=== PATIENT | female | born 1975 | race Caucasian/White ===

== ENCOUNTER 2017-02-23 11:31 | Emergency (ER) | payer SELFPAY ==
[~2017-02-23] VITALS: Ht 157.5 cm; Wt 79.5 kg
[2017-02-23 11:33] VITALS: BP 153/112; PULSE 89; RESP 15; O2SAT 98
[2017-02-23] MEDS ORDERED: Pantoprazole 4 mg/mL 10 mL Inj IVPUSH ONE (11:45)
[2017-02-23] MEDS ORDERED: Ondansetron 2 mg/mL 2 mL Inj IVPUSH PRN (11:45)
[2017-02-23 12:30] LABS: BASOPHILS % (AUTO) 0.3 % (0-3); EOSINOPHILS % (AUTO) 0.3 % (0-5); MONOCYTES % (AUTO) 6.2 % (4-12); Mean Corpuscular Hemoglobin 29.7 pg (27.0-35.0); Mean Corpuscular Volume 85.9 fL (81-100); NEUTROPHILS % (AUTO) 76.5 % (40-74); Platelet Count 331 bil/L (150-400)
--- NOTE | 2017-02-23 12:38 | ED.REPORT ---
HPI-Abd Pain F 40 and Over Date of Service Feb 23, 2017 ED Provider: Andriy Hickman MD Pt is a 41 y.o. female with hx of partial hysterectomy who presents to the ED c/ o left flank pain described as stabbing and pressure and radiating to her left groin onset 2 days ago. She reports that the pain is exacerbated by movement. Associated dysuria, nausea, vomiting, and diarrhea. She denies hx of kidney stones or abdominal surgery. Pt reports she has been taking dicyclomine as her PCP "believes she has an inflammatory disease". Nursing Notes Stated Complaint: LEFT SIDE PAIN Chief Complaint: Female Abdominal Pain Nursing Notes Reviewed: Yes Allergies: Coded Allergies: Sulfa (Sulfonamide Antibiotics) (Verified Allergy, Intermediate, rash, ) bupropion HCl (Verified Allergy, Unknown, 02/23/17) sertraline (Verified Allergy, Unknown, 02/23/17) Scheduled PRN Dicyclomine (Dicyclomine) 10 Mg Capsule 10 MG PO BID PRN PRN For GI Cramps Lorazepam (Lorazepam) 0.5 Mg Tablet 0.5 MG PO TID PRN PRN For Anxiety Naproxen Sodium (Naproxen Sodium) 550 Mg Tab 550 MG PO BID PRN PRN For Pain Ondansetron ODT (Zofran ODT) 4 Mg Tablet 4 MG PO Q4H PRN PRN For Nausea General Time Seen by MD: 11:42 Chief Complaint Flank pain left Hx Obtained From: Patient Arrived By: Walk-in Sudden in Onset?: Yes Onset Occurred: 2 days ago Symptom Duration: Since onset Progression since Onset: Constant Location: : Flank left Quality: Painful, Pressure, Stabbing Severity: Current: Severe Past Medical History Past Medical History Hx of MRSA Denies: Diabetes mellitus, Hypertension Past Surgical History Reports: Hysterectomy (partial) Ambulatory Status Independent Review of Systems GI: Reports: Diarrhea, Nausea, Vomiting Female: Reports: Dysuria, Flank pain Complete sys rev & neg: except as marked. Physical Exam Vital Signs Vital Signs (First) Date Time Temp Pulse Resp B/P Pulse Ox O2 Delivery O2 Flow Rate FiO2 02/23/17 11:33 36.2 89 15 153/112 98 Room Air Initial VS: Reviewed Head / Eyes: Atraumatic, Normocephalic Extremities: Vascular intact, Neuro intact Skin: Warm, Dry, No cyanosis Neurologic: Alert, Oriented, Nonfocal Psychiatric: Mood/affect normal, Behavior normal, Normal thought content General/Constitutional: Awake, Alert, Well appearing, Well developed, Well hydrated, Well nourished, Not toxic appearing Appearance / Presentation: Positive: Uncomfortable Respiratory / Chest: Atraumatic, Breath sounds NL, No respiratory distress Cardiovascular: Heart rate NL, Regular rhythm, Peripheral circulation NL Abdomen: Atraumatic, Soft, No guarding, No rebound, No distention Tenderness/Guarding/Rebound: Positive: Tender LLQ... Back: Atraumatic, Inspection NL Left CVA tenderness Interpretation & Diagnostics Lab Results Interpretation Result Diagram: 02/23/17 1215 02/23/17 1215 Test 02/23/17 12:15 02/23/17 12:28 White Blood Count 14.2th/mm3 (3.8-10.1) Red Blood Count 4.95mil/mm3 (3.90-5.20) Hemoglobin 14.7g/dL (12.0-15.6) Hematocrit 42.5% (35.0-46.0) Mean Corpuscular Volume 85.9fL (81-100) Mean Corpuscular Hemoglobin 29.7pg (27.0-35.0) Mean Corpuscular Hemoglobin Concent 34.6% (32.0-37.0) Red Cell Distribution Width 12.9% (12.3-15.4) Platelet Count 331bil/L (150-400) Neutrophils (%) (Auto) 76.5% (40-74) Lymphocytes (%) (Auto) 16.6% (14-46) Monocytes (%) (Auto) 6.2% (4-12) Eosinophils (%) (Auto) 0.3% (0-5) Basophils (%) (Auto) 0.3% (0-3) Sodium Level 141mEq/L (134-144) Potassium Level 3.5mEq/L (3.5-5.2) Chloride Level 101mEq/L (97-108) Carbon Dioxide Level 23mmol/L (18-29) Blood Urea Nitrogen 10mg/dL (6-24) Creatinine 0.67mg/dL (0.57-1.00) Estimat Glomerular Filtration Rate 140mL/min (>59) Glucose Level 111mg/dL (60-99) Calcium Level 9.9mg/dL (8.5-10.1) Magnesium Level 2.3mg/dL (1.6-2.6) Total Bilirubin 1.3mg/dL (0.0-1.2) Aspartate Amino Transf (AST/SGOT) 19U/L (0-50) Alanine Aminotransferase (ALT/SGPT) 20U/L (0-32) Alkaline Phosphatase 70U/L (25-150) Total Protein 7.7g/dL (6.4-8.4) Albumin 4.7g/dL (3.4-5.0) Lipase 65U/L (13-60) Hold Webb Top Tube Received (Received) Urine Color Yellow (YELLOW) Urine Appearance Clear (CLEAR,HAZY) Urine pH 7.5 (5.0-8.0) Urine Specific [place] 1.026 (1.003-1.035) Urine Protein Tracemg/dL (NEG,TRACE) Urine Glucose (UA) Negativemg/dL (NEGATIVE) Urine Ketones 80mg/dL (NEGATIVE) Urine Occult Blood Negative (NEGATIVE) Urine Nitrite Negative (NEGATIVE) Urine Bilirubin Negative (NEGATIVE) Urine Urobilinogen Normalmg/dL (NORMAL) Urine Leukocyte Esterase Negative (NEGATIVE) Urine RBC 0-2/hpf (0-2) Urine WBC 0-5/hpf (0-5) Urine Epithelial Cells Moderate/hpf (NONE-MOD) Urine Crystals None seen (NONE SEEN) Urine Bacteria None/hpf (NONE-FEW) Urine Hyaline Casts None/lpf (NONE) Urine Granular Casts None seen (NONE SEEN) Urine Waxy Casts None seen (NONE SEEN) Urine Red Blood Cell Casts None seen (NONE SEEN) Urine White Blood Cell Casts None seen (NONE SEEN) Urine Mucus Present (None Seen) Urine Trichomonas None seen (NONE SEEN) Urine Yeast None (NONE SEEN) Urinalysis Comment None Urine Culture Reflexed Not indicated Urinalysis Interpretation Positive blood CT Abd / Pelvis Interpretation IMPRESSION: 1. No evidence of nephrolithiasis or obstructive uropathy. 2. Diverticulosis without acute diverticulitis. 3. Small left adrenal adenoma redemonstrated. Dictated by: Matteo Anton M.D. on 02/23/2017 at 13:31 Approved by: Matteo Anton M.D. on 02/23/2017 at 13:37 Re-Eval/Medical Decision Source of Hx: Old records Re-Evaluation/Progress : Time of Eval: 14:11 Patient Status: Condition improved Re-Evaluation/Progress Note: Pt rechecked. Pt states she is moderately improved. Discussed CT results and plan for dicharge, pt understands and agrees with plan. Counseled Regarding: Diagnosis Discharge & Departure Primary Impression: Abdominal pain Abdominal location: left lower quadrant Qualified Code: R10.32 - Left lower quadrant pain Disposition: Home Discharge Condition All VS Reviewed: Yes Condition: Improved Patient Instructions: Acute Abdominal Pain (ED) Additional Instructions: No dangerous cause for your abdominal pain is discovered today. CT and blood work and urine were all within normal limits. I recommend Naprosyn twice daily as needed for pain and ondansetron as needed for nausea. Follow-up Saturday if your symptoms are not significantly improved. Follow-up right away for worsening symptoms, especially high fever or excessive vomiting. Referrals: Neisha Jarquin PA-C (PCP) Scribe Attestation Portions of this note were transcribed by Hebert Roman. I, Dr. Hickman personally performed the history, physical exam and medical decision-making; I reviewed and confirmed the accuracy of the information in the transcribed note. Signed by: Jan Parnell, 02/23/17 and [id number]. copies to: Neisha Jarquin PA-C, Kirk H MD Feb 23, 2017 12:38 HEBERT ROMAN Feb 23, 2017 12:46
[2017-02-23] MEDS ORDERED: LORA0.5T PO (12:55)
[2017-02-23] MEDS ORDERED: DICY10CA13 PO (12:55)
[2017-02-23 12:56] VITALS: BP 150/95; PULSE 73; RESP 16; O2SAT 99
[2017-02-23 12:56] LABS: APPEARANCE,URINE CLEAR (CLEAR,HAZY); COLOR,URINE YELLOW (YELLOW); OCCULT BLOOD,URINE NEGATIVE (NEGATIVE); PH,URINE 7.5 (5.0-8.0); UROBILINOGEN,URINE NORMAL (NORMAL)
[2017-02-23 13:08] LABS: Magnesium 2.3 mg/dL (1.6-2.6)
--- NOTE | 2017-02-23 13:39 | DRSVH ---
PROCEDURE: CT KUB ([id number]) INDICATIONS: left flank pain TECHNIQUE: Noncontrast 5 mm thick sections acquired from the diaphragms to the symphysis. 5 mm thick coronal an d sagittal reformats were then performed. For radiation dose reduction, the following was used: aut omated exposure control, adjustment of mA and/or kV according to patient size. COMPARISON: [facility], CT, CT KUB, 04/25/2016, 18:11. FINDINGS: Image quality: Excellent. Lung bases: Lung bases are clear. Heart size is normal. Urinary system: Both kidneys are normal in size. No kidney stones. No hydronephrosis or perinephri c fat stranding. Both ureters appear non-dilated throughout their expected courses. Bladder wall th ickness is normal; no calcified bladder stones. Other solid organs: Liver and spleen are normal in size. Gallbladder appears within normal limits w ithout calcified gallstones. Pancreas is normal in contours. There is a small 1.1 cm left adrenal n odule consistent with an adenoma. Peritoneum and bowel: Unenhanced bowel loops demonstrate normal wall thickness and caliber. Diverti culosis without acute diverticulitis. No evidence of appendicitis. No free fluid or air. Nodes and vessels: No retroperitoneal or mesenteric adenopathy by size criteria. Aorta and inferior vena cava are normal in caliber. Abdominal wall: No ventral hernias. Pelvis: No free pelvic fluid. There are a few small cysts in the right ovary likely representing pr ominent follicles. No inguinal hernias or adenopathy. Bones: No suspicious bony lesions. No vertebral body compression fractures. IMPRESSION: 1. No evidence of nephrolithiasis or obstructive uropathy. 2. Diverticulosis without acute diverticulitis. 3. Small left adrenal adenoma redemonstrated. Dictated by: Matteo Anton M.D. on 02/23/2017 at 13:31 Approved by: Matteo Anton M.D. on 02/23/2017 at 13:37
[2017-02-23] MEDS ORDERED: ONDA4TAB9 PO (14:14)
[2017-02-23] MEDS ORDERED: NAPR550T44 PO (14:14)
[2017-02-23 14:46] VITALS: BP 130/86; PULSE 84; RESP 16; O2SAT 97
== END 2017-02-23 14:49 | disposition home or self-care (01) ==
LOC: SED 11:31
DX: R10.32 Left lower quadrant pain (principal); Z88.2 Allergy status to sulfonamides; Z88.8 Allergy status to other drugs, medicaments and biological substances
CPT/HCPCS: 36415; 74176; 80053; 81000; 81025; 83690; 83735; 85025; 96374; 96375; 99285; J1885; J2405